=== PATIENT | female | born 1985 | race Hispanic/Latino ===

== ENCOUNTER 2018-06-11 10:29 | Emergency (ER) | payer SELFPAY ==
[2018-06-11 11:02] LABS: Bilirubin Negative (Negative); Blood, Urine Small (Negative); Clarity CLOUDY (Clear); Glucose, Urine (Dipstick) Negative (Negative); Leukocyte Negative (Negative); Nitrite Negative (Negative); Protein, Urine (Dipstick) Negative (Neg-Trace); Specific Gravity, Urine 1.025 (1.002-1.036)
[2018-06-11 11:04] LABS: Bacteria/HPF Rare-Few HPF (None Seen); Hyaline Casts/LPF 0-3 HYALINE CAST LPF (0-3 Hyaline); Pathc Cast-AUWi Flag 0.95 (0-2.49); WBC/HPF 0-3 HPF (0-3)
[2018-06-11 11:19] LABS: RBC/HPF 0-3 HPF (0-3)
[2018-06-11 11:43] LABS: #Basophils 0.1 thou/uL (0.0-0.2); #Eosinphils 0.1 thou/uL (0.0-0.7); #Lymphocytes 1.9 thou/uL (1.20-3.40); #Monocytes 0.8 thou/uL (0.11-0.59); #Neutrophils 8.5 thou/uL (1.40-6.50); %Basophils 0.4 % (0.0-1.0); %Eosinophils 1.2 % (0.0-10.0); %Lymphocytes 16.5 % (21.0-51.0); %Monocytes 7.3 % (0.0-10.0); %Neutrophils 74.6 % (42.0-75.0); Hemoglobin 12.9 g/dL (12.0-16.0); Mean Corpuscular HGB CONC 34.2 g/dL (32.0-36.0); Mean Corpuscular Hemoglobin 29.2 pg (27.0-31.0); Mean Corpuscular Volume 85.4 fL (78.0-98.0); Mean Platelet Volume 7.2 fL (7.4-10.4); Platelet Count 415 thou/uL (130-400); RBC Distribution Width 11.9 % (11.5-14.5); Red Blood Cell (RBC) Count 4.42 mill/uL (4.20-5.40); White Blood Cell (WBC) Count 11.4 thou/uL (4.8-10.8)
--- NOTE | 2018-06-11 12:25 | ULT ---
FPelvic ultrasound: 06/11/2018 COMPARISON: None HISTORY: 33-year-old female with vaginal bleeding and cramping, assess for ectopic TECHNIQUE: Multiplanar grayscale sonographic imaging of the pelvis is obtained with transabdominal an d endovaginal imaging. The ovaries are assessed with color flow and spectral analysis FINDINGS: The uterus measures 10.2 x 4.5 x 5.3 cm. There is an intrauterine gestational sac which con tains a pole and a yolk sac. No free fluid is seen in the pelvis. No evidence for a subchorioni c hemorrhage is noted. heart rate is abnormally low, estimated at 75 bpm. Right ovary measures 3.3 x 1.6 x 1.8 cm and left ovary measures 2.7 x 2.8 x 2.5 cm. Small cyst in lef t ovary noted measuring 1.3 cm. Secondary to location and bowel gas, blood flow cannot be documented within the right ovary. Blood flow is seen within the left ovary. [place]-rump length of 5 mm correlates with a 6 week 1 day gestation. Gestational sac diameter of 1.3 c m correlates with a gestational age of 6 weeks 1 days. Average age based on ultrasound is 6 weeks 1 d ays with estimated date of delivery on 02/03/2019. IMPRESSION: Intrauterine gestation as detailed above. bradycardia is documented, with a h eart rate of approximately 75 bpm.
[2018-06-11] MEDS ORDERED: Ondansetron ODT 4 MG TAB ONE (12:56)
[2018-06-11] MEDS ORDERED: Morphine 4 MG/ML VIAL ONE (12:56)
[2018-06-11 13:32] LABS: ALT (SGPT) 23 U/L (8-55); AST (SGOT) 16 U/L (5-34); Albumin 4.5 g/dL (3.5-5.0); Alkaline Phosphatase 66 U/L (40-150); Anion Gap 9 mmol/L (10-20); BUN (Urea Nitrogen) 11 mg/dL (7.0-18.7); Bilirubin, Total 0.3 mg/dL (0.2-1.2); Calc. Creatinine Clearance 0 mL/min (70-130); Calcium 9.3 mg/dL (7.8-10.44); Carbon Dioxide 25 mmol/L (22-29); Chloride 106 mmol/L (98-107); Estimated GFR-MDRD Greater than 90; Globulin 2.5 g/dL (2.4-3.5); Glucose 105 mg/dL (70-105); Lipase 28 U/L (8-78); Potassium 3.9 mmol/L (3.5-5.1); Sodium 136 mmol/L (136-145)
--- NOTE | 2018-06-11 21:06 | CON ---
DATE OF CONSULTATION: 06/11/2018 CONSULTING PROVIDER: KULWANT Stallworth, Emergency Department. CHIEF COMPLAINT: Vaginal bleeding in early . HISTORY OF PRESENT ILLNESS: This is a 33-year-old G1 at approximately 6 weeks gestation by last menstrual period, here for vaginal bleeding. She reports that she has started cramping and having vaginal bleeding this morning with passage of some small clots. She denies any other complaints. PAST MEDICAL HISTORY: None. PAST SURGICAL HISTORY: None. MEDICATIONS: vitamins. ALLERGIES: NO KNOWN DRUG ALLERGIES. SOCIAL HISTORY: Negative for tobacco, alcohol, or drug abuse. FAMILY HISTORY: Negative for breast, ovary, uterine, or colon cancer. REVIEW OF SYSTEMS: Negative for head, eyes, ears, nose, throat, cardiovascular, respiratory, GI, , neuro, psych, musculoskeletal, skin, or constitutional symptoms other than mentioned above. PHYSICAL EXAMINATION: VITAL SIGNS: Blood pressure 101/67, pulse 96, respiratory rate 16, temperature 97.7. GENERAL: Awake, alert, in no acute distress. CHEST: Nonlabored breathing. ABDOMEN: Soft, nontender to palpation. PELVIC: Normal-appearing external female genitalia. BUS normal. Vaginal mucosa is pink and moist, well rugated. The cervix appears approximately 1 cm dilated with tissue at the os. Small amount of blood in the vault. No significant bleeding. LABORATORY DATA: Hemoglobin 12.9, hematocrit 37.8. IMAGING: Transvaginal ultrasound revealed a 6 week 1 day intrauterine with heart tones of approximately 75 beats per minute, otherwise unremarkable. ASSESSMENT AND PLAN: A 33-year-old G1 with threatened miscarriage versus incomplete . The patient opted for expectant management at this time and will be discharged home with bleeding precautions. She will follow up with clinic if she does not pass any tissue or if she does pass tissue. She will return if she has a significant increase in her vaginal bleeding. All questions were answered with an freelance interpreter/translator. Thank you very much for this consultation. Please let us know if we could be of any further assistance. Job ID: [id number]
== END 2018-06-11 14:06 | disposition home or self-care (01) ==
LOC: ERS 10:29
DX: O20.0 Threatened abortion (principal); Z3A.01 Less than 8 weeks gestation of pregnancy
CPT/HCPCS: 36415; 76856; 80053; 81003; 81015; 83690; 84702; 85025; 86900; 86901; 96372; J2270; Q0162

== ENCOUNTER 2020-04-05 09:40 | Outpatient (CLI) | payer OTHER ==
[2020-04-05 18:28] LABS: SARS-CoV-2 PCR by NAA Not Detected (NotDetected)
[2020-04-06] MEDS ORDERED: hydrALAZINE 20 MG/ML VIAL SLOW IVP PRN (01:58)
== END 2020-04-05 09:41 | disposition home or self-care (01) ==
LOC: LABBT 09:40
PROVIDERS: ATTEND Family Medicine
DX: Z01.812 Encounter for preprocedural laboratory examination (principal); Z20.822 Contact with and (suspected) exposure to COVID-19
CPT/HCPCS: 87635; U0003; U0005

== ENCOUNTER 2020-04-06 00:44 | Inpatient (IN) | payer MEDICAID, OTHER, SELFPAY ==
[2020-04-06 01:20] VITALS: BMI 23.6
[2020-04-06] MEDS ORDERED: hydrALAZINE 20 MG/ML VIAL SLOW IVP PRN ×2 (02:12→06:03)
[2020-04-06] MEDS ORDERED: Promethazine HCl 25 MG/ML VIAL IM PRN ×2 (06:03→14:37)
[2020-04-06] MEDS ORDERED: Ondansetron PF 4 MG/2 ML Vial IVP PRN ×2 (06:03→14:37)
[2020-04-06] MEDS ORDERED: Lidocaine 1% (PF) 30 ML VIAL SC PRN (06:03)
[2020-04-06] MEDS: Lactated Ringer's 1,000 ML IV SCH ×5 (06:25→18:59)
[2020-04-06] MEDS ORDERED: NS w/ Oxytocin 30 units 500 ML IV PRN (06:28)
[2020-04-06] MEDS ORDERED: Misoprostol 200 MCG TAB PR PRN (07:13)
[2020-04-06] MEDS ORDERED: Methylergonovine 0.2 MG/ML VIAL IM PRN (07:13)
[2020-04-06] MEDS ORDERED: Ibuprofen 800 MG TAB PO PRN (07:13)
[2020-04-06] MEDS ORDERED: Carboprost 250 MCG/ML AMP IM PRN (07:13)
[2020-04-06 07:30] LABS: Hemoglobin 13.8 g/dL (12.0-16.0); Mean Corpuscular HGB CONC 35.4 g/dL (32.0-36.0); Mean Corpuscular Hemoglobin 31.2 pg (27.0-31.0); Mean Corpuscular Volume 88.2 fL (78.0-98.0); Mean Platelet Volume 9.1 fL (7.4-10.4); Platelet Count 304 thou/uL (130-400); RBC Distribution Width 12.8 % (11.5-14.5); Red Blood Cell (RBC) Count 4.43 mill/uL (4.20-5.40); White Blood Cell (WBC) Count 15.6 thou/uL (4.8-10.8)
[2020-04-06 08:06] LABS: HBSAg Index 0.12 S/CO (0-0.99); Hep B Surf Ag Non-Reactive S/CO (NonReactive); Syphilis Antibody Nonreactive (Nonreactive); Syphilis Antibody Index 0.04 S/CO (<1.00 Non-Reactive)
[2020-04-06] MEDS ORDERED: Bupivacaine PF 0.5% 30 ML VIAL ONE (11:26)
[2020-04-06] MEDS ORDERED: Bupivacaine HCl 0.25%/Epi 0.0005/PF 10 ML VIAL FS ONE (11:26)
[2020-04-06] MEDS ORDERED: ePHEDrine 50 MG/ML VIAL ONE (11:26)
[2020-04-06] MEDS: NS w/ Oxytocin 30 units 500 ML IV PRN (12:14)
[2020-04-06] MEDS: Dextrose 5%-Lactated Ringers 1,000 ML IV SCH ×2 (12:16→17:43)
[2020-04-06] MEDS ORDERED: Fentanyl 4 mcg/Bup 0.1% Cadd 100 ML ONE ×2 (14:05→21:55)
[2020-04-06] MEDS ORDERED: Lactated Ringer's 500 ML IV PRN (14:37)
[2020-04-06] MEDS ORDERED: ePHEDrine 50 MG/ML VIAL SLOW IVP PRN (14:37)
[2020-04-06] MEDS ORDERED: diphenhydrAMINE 50 MG/ML VIAL IVP PRN (14:37)
[2020-04-06] MEDS ORDERED: Naloxone HCl 0.4 mg/ml Vial IVP PRN ×2 (14:37)
[2020-04-06] MEDS ORDERED: Acetaminophen 325 MG TAB PO PRN (14:37)
[2020-04-06] MEDS ORDERED: Communication Order-Pharmacy FS SCH (14:45)
[2020-04-06] MEDS: Acetaminophen 500 MG TAB PO PRN (18:59)
[2020-04-06] MEDS: Fentanyl 4 mcg/Bupivacaine 0.1% Cassette 100 ML EPIDURAL SCH (21:58)
[2020-04-07] MEDS: Dextrose 5%-Lactated Ringers 1,000 ML IV SCH ×2 (01:31→14:23)
[2020-04-07] MEDS: Acetaminophen 500 MG TAB PO PRN (02:31)
[2020-04-07] MEDS ORDERED: Fentanyl 4 mcg/Bup 0.1% Cadd 100 ML ONE (04:46)
[2020-04-07] MEDS: Fentanyl 4 mcg/Bupivacaine 0.1% Cassette 100 ML EPIDURAL SCH (04:48)
[2020-04-07] MEDS ORDERED: Famotidine/PF 20 mg/2ml Vial SLOW IVP PRN (07:47)
[2020-04-07] MEDS ORDERED: Bicitra 30 ML UDCUP PO PRN (07:47)
[2020-04-07] MEDS ORDERED: Azithromycin 500 MG in Sodium Chloride 0.9% 250 ML 250 ML IVPB SCH (08:00)
[2020-04-07] MEDS ORDERED: CEFAZOLIN 2 GM in Premix Bag 1 BAG IVPB SCH (08:00)
[2020-04-07] MEDS ORDERED: Oxytocin 10 UNITS/ML VIAL ONE ×2 (08:14→08:19)
[2020-04-07] MEDS ORDERED: Morphine PF 10 MG/10 ML VIAL ONE (08:14)
[2020-04-07] MEDS ORDERED: Ondansetron PF 4 MG/2 ML Vial ONE (08:37)
[2020-04-07] MEDS ORDERED: Acetaminophen 325 MG TAB PO PRN (09:47)
[2020-04-07] MEDS ORDERED: Adacel (T-DAP) 0.5 ML SYRINGE IM ONE (09:47)
[2020-04-07] MEDS ORDERED: Simethicone Chewable 80 MG TAB PO PRN (09:47)
[2020-04-07] MEDS ORDERED: diphenhydrAMINE 25 MG CAP PO PRN (09:47)
[2020-04-07] MEDS ORDERED: hydrALAZINE 20 MG/ML VIAL SLOW IVP PRN (09:47)
[2020-04-07] MEDS ORDERED: Ondansetron PF 4 MG/2 ML Vial IVP PRN ×2 (09:47→09:50)
[2020-04-07] MEDS ORDERED: Lanolin Ointment 7 GM TUBE TOP PRN (09:47)
[2020-04-07] MEDS ORDERED: Ketorolac Tromethamine 30 MG/ML VIAL IVP PRN (09:50)
[2020-04-07] MEDS ORDERED: Ondansetron HCl/PF 4 MG/2 ML Vial IVP PRN (09:50)
[2020-04-07] MEDS ORDERED: diphenhydrAMINE 50 MG/ML VIAL IVP PRN (09:50)
[2020-04-07] MEDS ORDERED: Naloxone HCl 0.4 mg/ml Vial IV PRN (09:50)
[2020-04-07] MEDS ORDERED: L&D-Morphine 4 MG/ML VIAL SLOW IVP PRN (09:50)
[2020-04-07] MEDS ORDERED: Naloxone HCl 0.4 mg/ml Vial IVP PRN ×2 (09:50)
[2020-04-07] MEDS ORDERED: Meperidine HCl/PF 25 MG/ML VIAL SLOW IVP PRN (09:50)
[2020-04-07] MEDS ORDERED: Promethazine HCl 25 MG SUPP PR PRN (09:50)
[2020-04-07] MEDS ORDERED: Promethazine HCl 25 MG/ML VIAL IM PRN (09:50)
[2020-04-07] MEDS ORDERED: HYDROmorphone 2 MG/ML VIAL SLOW IVP PRN (09:50)
[2020-04-07] MEDS ORDERED: Ketorolac Tromethamine 30 MG/ML VIAL IVP SCH (10:00)
[2020-04-07] MEDS ORDERED: Communication Order-Pharmacy FS SCH (10:00)
[2020-04-07] MEDS ORDERED: Ketorolac Tromethamine 30 MG/ML VIAL ONE (10:02)
[2020-04-07] MEDS ORDERED: NS w/ Oxytocin 30 units 500 ML ONE (10:27)
[2020-04-07] MEDS: NS w/ Oxytocin 30 units 500 ML IV PRN (10:30)
[2020-04-07] MEDS ORDERED: HYDROcodone/Acetaminophen 5/325 mg Tablet PO PRN (22:00)
[2020-04-08 06:44] LABS: Hemoglobin 10.1 g/dL (12.0-16.0); Mean Corpuscular HGB CONC 34.3 g/dL (32.0-36.0); Mean Corpuscular Hemoglobin 30.2 pg (27.0-31.0); Mean Corpuscular Volume 88.3 fL (78.0-98.0); Mean Platelet Volume 7.8 fL (7.4-10.4); Platelet Count 217 thou/uL (130-400); Red Blood Cell (RBC) Count 3.35 mill/uL (4.20-5.40)
[2020-04-08] MEDS: Prenatal Vitamin 1 TAB PO SCH (13:59)
[2020-04-08] MEDS: Ibuprofen 800 MG TAB PO SCH ×2 (14:10→21:51)
[2020-04-09] MEDS: Ibuprofen 800 MG TAB PO SCH (06:40)
[2020-04-09] MEDS ORDERED: Ferrous Sulfate 325 MG TAB PO SCH (08:00)
[2020-04-09] MEDS: Prenatal Vitamin 1 TAB PO SCH (08:48)
[2020-04-09 08:58] VITALS: BP 107/59; TEMP 97.9
== END 2020-04-09 11:30 | disposition home or self-care (01) | DRG 786 ==
LOC: L&D/OP 00:44 → L&D 06:03 → 3SW 04-07 12:35
PROVIDERS: ADMIT Family Medicine; ATTEND Family Medicine
PROC: 10H07YZ Insertion of Other Device into Products of Conception, Via Natural or Artificial Opening (ICD-10-PCS; 2020-04-06)
PROC: 10D00Z1 Extraction of Products of Conception, Low, Open Approach (ICD-10-PCS; principal; 2020-04-07)
PROC: 3E0P7VZ Introduction of Hormone into Female Reproductive, Via Natural or Artificial Opening (ICD-10-PCS; 2020-04-07)
PROC: 10907ZC Drainage of Amniotic Fluid, Therapeutic from Products of Conception, Via Natural or Artificial Opening (ICD-10-PCS; 2020-04-07)
PROC: 3E033VJ Introduction of Other Hormone into Peripheral Vein, Percutaneous Approach (ICD-10-PCS; 2020-04-07)
DX: O32.4XX0 Maternal care for high head at term, not applicable or unspecified (principal); O41.1230 Chorioamnionitis, third trimester, not applicable or unspecified; Z20.822 Contact with and (suspected) exposure to COVID-19; O75.81 Maternal exhaustion complicating labor and delivery; O34.13 Maternal care for benign tumor of corpus uteri, third trimester; Z3A.40 40 weeks gestation of pregnancy; Z37.0 Single live birth
CPT/HCPCS: 36415; 51702; 85027; 86780; 86850; 86900; 86901; 87340; 87635; 88307; 99285; J0690; J1200; J1885; J2270; J2405; J2590; J3490; S0020; U0003; U0005